=== PATIENT | female | born 1970 | race Caucasian/White ===

== ENCOUNTER 2021-07-06 10:56 | Inpatient (IN) | payer OTHER ==
[2021-07-06] VITALS (7 sets, daily range): BP systolic 103–139; BP diastolic 58–78
[~2021-07-06] VITALS: Ht 162.6 cm; Wt 95.3 kg
[2021-07-06] MEDS: Vancomycin IV 1.25 GM in SODIUM CHLORIDE 0.9% 250ML 250 ML IV SCH (01:30)
[2021-07-06 11:24] LABS: BASOPHILS # (AUTO) 0.1 (0.0-0.1); BASOPHILS % 0.7 % (0.0-1.0); EOSINOPHILS # (AUTO) 0.2 (0.0-0.4); EOSINOPHILS % 2.2 % (0.0-6.0); HEMATOCRIT 41.3 % (34.2-44.1); HEMOGLOBIN 12.5 g/dL (12.0-16.0); LYMPHOCYTES # (AUTO) 2.2 (1.0-3.2); LYMPHOCYTES % 23.5 % (18.0-39.1); MEAN CORPUSCULAR HEMOGLOBIN 28.9 pg (28-32); MEAN CORPUSCULAR HGB CONC 30.3 g/dL (31-35); MEAN CORPUSCULAR VOLUME 95.4 fL (81-99); MONOCYTES # (AUTO) 0.8 (0.2-0.8); MONOCYTES % 8.2 % (4.4-11.3); NEUTROPHILS % 64.1 % (38.7-80.0); PLATELET COUNT 471 x10e3/uL (140-360); RED BLOOD COUNT 4.33 x10e6/uL (3.6-5.1); RED CELL DISTRIBUTION WIDTH 17.1 % (11.7-14.4)
[2021-07-06 11:34] LABS: INR 0.9; PARTIAL THROMBOPLASTIN TIME 27.5 seconds (23.8-35.5)
[2021-07-06 11:42] LABS: ALBUMIN 3.4 g/dL (3.5-5.0); ALBUMIN/GLOBULIN RATIO 0.9 (0.8-2.0); ANION GAP 15.8 mmol/L (8-16); CALCIUM 10.4 mg/dL (8.4-10.2); CREATININE, SERUM 0.76 mg/dL (0.57-1.11); POTASSIUM 3.8 mmol/L (3.5-5.1)
[2021-07-06] MEDS ORDERED: PROPOFOL IV EMULSION 10 MG/ML 20 ML VIAL ONE (12:17)
[2021-07-06] MEDS ORDERED: SEVOFLURANE INHAL SOLN 250 ML PEN BTL ONE (12:17)
[2021-07-06] MEDS ORDERED: LIDOCAINE HCL 2% LOCAL INJ 5 ML SDV VIAL INJ ONE (12:17)
[2021-07-06] MEDS ORDERED: POVIDONE IODINE 0.05% 0.05 % ML PO ONE (12:17)
[2021-07-06] MEDS ORDERED: DEXAMETHASONE SOD PHOS INJ 4 MG/ML SDV ONE (12:17)
[2021-07-06] MEDS ORDERED: ONDANSETRON HCL INJ 2MG/ML 2ML 2 MG/ML VIAL ONE (12:17)
[2021-07-06] MEDS ORDERED: KETOROLAC TROMETHAMINE 30 MG/ML VIAL ONE (12:17)
[2021-07-06] MEDS ORDERED: ASPIRIN EC81 MG PO (12:59)
[2021-07-06] MEDS ORDERED: LEVOTHYROXINE25 MCG PO (12:59)
[2021-07-06] MEDS ORDERED: HYDROCODON-ACE1 EA11 PO (12:59)
[2021-07-06] MEDS ORDERED: CELECOXIB200 MG PO (12:59)
[2021-07-06] MEDS ORDERED: CLINDAMYCIN HC300 MG PO (12:59)
[2021-07-06] MEDS ORDERED: ATORVASTATIN CA40 MG PO (12:59)
[2021-07-06] MEDS ORDERED: DOXYCYCLINE HY100 MG PO (12:59)
[2021-07-06] MEDS ORDERED: METHOCARBAMOL500 MG PO (12:59)
[2021-07-06] MEDS ORDERED: LISINOPRIL-HCT1 EAC1 PO (12:59)
[2021-07-06] MEDS ORDERED: METFORMIN HCL1000 MG PO (12:59)
[2021-07-06] MEDS ORDERED: GABAPENTIN300 MG PO (12:59)
[2021-07-06] MEDS ORDERED: ATROVENT HFA12.9 GM INH (12:59)
[2021-07-06] MEDS ORDERED: ONDANSETRON HCL INJ 2MG/ML 2ML 2 MG/ML VIAL IV PRN (13:15)
[2021-07-06] MEDS ORDERED: LIDOCAINE 4% PATCH TP PRN (13:15)
[2021-07-06] MEDS ORDERED: ALBUTEROL/IPRATROPIUM 3 ML NEB NEB PRN (13:15)
[2021-07-06] MEDS ORDERED: POTASSIUM CHLORIDE 20 MEQ TAB CR PO PRN (13:15)
[2021-07-06] MEDS ORDERED: HYDRALAZINE HCL 20 MG/ML VIAL IV PRN (13:15)
[2021-07-06] MEDS ORDERED: SIMETHICONE 80 MG CHEW PO PRN (13:15)
[2021-07-06] MEDS ORDERED: BENZONATATE 100 MG CAP PO PRN (13:15)
[2021-07-06] MEDS ORDERED: DIPHENHYDRAMINE HCL 25 MG CAP PO PRN (13:15)
[2021-07-06] MEDS ORDERED: MELATONIN 5 MG TABLET PO PRN (13:15)
[2021-07-06] MEDS ORDERED: DEXTROSE 50% SYRINGE 50 ML IV PRN (13:15)
[2021-07-06] MEDS ORDERED: ACETAMINOPHEN 325 MG TAB PO PRN (13:15)
[2021-07-06] MEDS ORDERED: FENTANYL CITRATE/PF 100MCG/2 ML INJ ONE (13:26)
[2021-07-06] MEDS ORDERED: MIDAZOLAM HCL 2 MG/2 ML VIAL ONE (13:26)
[2021-07-06] MEDS: DEXTROSE 5%/0.9% SOD CHL 1,000 ML IV SCH ×2 (13:28→21:24)
[2021-07-06] MEDS: ENOXAPARIN SOD INJ 40 MG/0.4 ML SYR SC SCH (17:00)
[2021-07-06] MEDS ORDERED: ROPIVACAINE 0.5% 5 MG/ML 30 ML SDV ONE (17:38)
[2021-07-06] MEDS ORDERED: HYDROGEN PEROXIDE 120 ML BTL ONE (17:57)
[2021-07-06] MEDS ORDERED: Vancomycin IV 1 GM VIAL ONE ×3 (18:10→18:55)
[2021-07-06] MEDS ORDERED: SODIUM CHLORIDE 0.9% 500ML 0 ML ONE (18:14)
[2021-07-06] MEDS ORDERED: ACETAMINOPHEN 1000 MG/100 ML 100 ML IV ONE (18:41)
[2021-07-06] MEDS ORDERED: SODIUM CHLORIDE 0.9% 250ML 250 ML ONE (18:42)
[2021-07-06] MEDS ORDERED: HYDROMORPHONE 1MG/1ML INJ ONE ×2 (18:42→20:40)
[2021-07-06] MEDS ORDERED: HYDROCODONE/APAP 10MG-325MG TAB PO PRN (20:15)
[2021-07-06] MEDS ORDERED: Morphine 2mg Syringe 2 MG/ML SYR IV PRN (20:15)
[2021-07-06] MEDS ORDERED: Morphine 4mg Syringe 4 MG/ML INJ IV PRN (20:15)
[2021-07-07] MEDS: CEFEPIME 2 GM in SODIUM CHLORIDE 0.9% 100 ML IV SCH ×4 (01:25→22:40)
[2021-07-07 04:00] VITALS: BP 110/68
[2021-07-07 06:52] LABS: BASOPHILS % 0.3 % (0.0-1.0); EOSINOPHILS % 0.2 % (0.0-6.0); HEMOGLOBIN 9.6 g/dL (12.0-16.0); LYMPHOCYTES # (AUTO) 1.7 (1.0-3.2); LYMPHOCYTES % 17.2 % (18.0-39.1); MEAN CORPUSCULAR HEMOGLOBIN 28.8 pg (28-32); MEAN CORPUSCULAR VOLUME 96.1 fL (81-99); MONOCYTES # (AUTO) 0.7 (0.2-0.8); MONOCYTES % 7.1 % (4.4-11.3); NEUTROPHILS # (AUTO) 7.4 (2.1-6.9); NEUTROPHILS % 73.7 % (38.7-80.0); PLATELET COUNT 383 x10e3/uL (140-360); RED BLOOD COUNT 3.33 x10e6/uL (3.6-5.1)
[2021-07-07] MEDS ORDERED: Morphine 2mg Syringe 2 MG/ML SYR IV PRN (07:30)
[2021-07-07 07:34] LABS: ANION GAP 11.6 mmol/L (8-16); CALCIUM 7.7 mg/dL (8.4-10.2); CREATININE, SERUM 0.64 mg/dL (0.57-1.11); POTASSIUM 3.6 mmol/L (3.5-5.1)
[2021-07-07 08:15] VITALS: BP 109/72
[2021-07-07 08:16] VITALS: BP 109/72
[2021-07-07] MEDS: PANTOPRAZOLE SOD 40 MG TABEC PO SCH (09:03)
[2021-07-07] MEDS: Vancomycin IV 1.25 GM in SODIUM CHLORIDE 0.9% 250ML 250 ML IV SCH ×2 (09:03→22:40)
[2021-07-07] MEDS: DEXTROSE 5%/0.9% SOD CHL 1,000 ML IV SCH (09:15)
[2021-07-07 11:29] VITALS: BP 115/71
[2021-07-07] MEDS: HYDROCODONE/APAP 10MG-325MG TAB PO PRN ×2 (11:46→18:10)
[2021-07-07 16:00] VITALS: BP 137/85
[2021-07-07] MEDS: ENOXAPARIN SOD INJ 40 MG/0.4 ML SYR SC SCH (16:32)
[2021-07-07] MEDS: CELECOXIB 200 MG CAP PO SCH (16:32)
[2021-07-07] MEDS: ASPIRIN 81 MG ENTERIC COATED PO SCH (16:32)
[2021-07-07] MEDS ORDERED: CELECOXIB 200 MG PO SCH (17:00)
[2021-07-07 20:00] VITALS: BP 115/66
[2021-07-07] MEDS ORDERED: NON-FORMULARY MEDICATION (Atorvastatin Calcium 40 MG) PO SCH (21:00)
[2021-07-07] MEDS: ATORVASTATIN 40 MG TAB PO SCH (22:40)
[2021-07-08] VITALS: BP 122/76
[2021-07-08 04:00] VITALS: BP 122/82
[2021-07-08] MEDS: HYDROCODONE/APAP 10MG-325MG TAB PO PRN ×2 (04:18→10:49)
[2021-07-08] MEDS: CEFEPIME 2 GM in SODIUM CHLORIDE 0.9% 100 ML IV SCH (06:19)
[2021-07-08] MEDS: LEVOTHYROXINE SODIUM 25 MCG TABLET PO SCH (06:19)
[2021-07-08 08:00] VITALS: BP 127/84
[2021-07-08] MEDS: CELECOXIB 200 MG CAP PO SCH ×2 (08:31→16:37)
[2021-07-08] MEDS: GABAPENTIN 300 MG CAP PO SCH (08:31)
[2021-07-08] MEDS: ASPIRIN 81 MG ENTERIC COATED PO SCH ×2 (08:31→16:37)
[2021-07-08] MEDS: PANTOPRAZOLE SOD 40 MG TABEC PO SCH (08:31)
[2021-07-08] MEDS: DOCUSATE SODIUM 100 MG CAP PO PRN (08:31)
[2021-07-08 10:08] LABS: BASOPHILS # (AUTO) 0.1 (0.0-0.1); BASOPHILS % 0.7 % (0.0-1.0); EOSINOPHILS # (AUTO) 0.2 (0.0-0.4); EOSINOPHILS % 1.8 % (0.0-6.0); HEMATOCRIT 31.2 % (34.2-44.1); HEMOGLOBIN 9.5 g/dL (12.0-16.0); LYMPHOCYTES # (AUTO) 2.1 (1.0-3.2); LYMPHOCYTES % 21.4 % (18.0-39.1); MEAN CORPUSCULAR HEMOGLOBIN 29.4 pg (28-32); MEAN CORPUSCULAR HGB CONC 30.4 g/dL (31-35); MEAN CORPUSCULAR VOLUME 96.6 fL (81-99); MONOCYTES % 10.6 % (4.4-11.3); NEUTROPHILS # (AUTO) 5.9 (2.1-6.9); NEUTROPHILS % 60.9 % (38.7-80.0); PLATELET COUNT 373 x10e3/uL (140-360); RED BLOOD COUNT 3.23 x10e6/uL (3.6-5.1); RED CELL DISTRIBUTION WIDTH 17.2 % (11.7-14.4)
[2021-07-08 10:26] LABS: ANION GAP 11.7 mmol/L (8-16); CALCIUM 7.8 mg/dL (8.4-10.2); CREATININE, SERUM 0.65 mg/dL (0.57-1.11); POTASSIUM 3.7 mmol/L (3.5-5.1)
[2021-07-08] MEDS: Vancomycin IV 1.25 GM in SODIUM CHLORIDE 0.9% 250ML 250 ML IV SCH (11:44)
[2021-07-08 12:00] VITALS: BP 127/77
[2021-07-08] MEDS ORDERED: Vancomycin IV 1.5 GM in SODIUM CHLORIDE 0.9% 250ML 300 ML IV SCH (14:00)
[2021-07-08 16:00] VITALS: BP 107/65
[2021-07-08] MEDS: ENOXAPARIN SOD INJ 40 MG/0.4 ML SYR SC SCH (17:24)
[2021-07-08 20:00] VITALS: BP 116/71
[2021-07-08] MEDS: ATORVASTATIN 40 MG TAB PO SCH (21:00)
[2021-07-08] MEDS: Vancomycin IV 1.5 GM in SODIUM CHLORIDE 0.9% 250ML 300 ML IV SCH (21:11)
[2021-07-08] MEDS ORDERED: SODIUM CHLORIDE 0.9% 250ML 250 ML ONE (21:21)
[2021-07-09] VITALS (8 sets, daily range): BP systolic 115–127; BP diastolic 71–82
[2021-07-09] MEDS: HYDROCODONE/APAP 10MG-325MG TAB PO PRN ×3 (00:55→16:16)
[2021-07-09] MEDS: LEVOTHYROXINE SODIUM 25 MCG TABLET PO SCH (05:12)
[2021-07-09 05:47] LABS: BASOPHILS # (AUTO) 0.1 (0.0-0.1); EOSINOPHILS # (AUTO) 0.2 (0.0-0.4); EOSINOPHILS % 2.6 % (0.0-6.0); HEMOGLOBIN 9.6 g/dL (12.0-16.0); LYMPHOCYTES # (AUTO) 2.3 (1.0-3.2); LYMPHOCYTES % 23.9 % (18.0-39.1); MEAN CORPUSCULAR HEMOGLOBIN 29.2 pg (28-32); MEAN CORPUSCULAR VOLUME 97.3 fL (81-99); MONOCYTES # (AUTO) 0.9 (0.2-0.8); MONOCYTES % 9.4 % (4.4-11.3); NEUTROPHILS # (AUTO) 5.4 (2.1-6.9); NEUTROPHILS % 56.8 % (38.7-80.0); PLATELET COUNT 303 x10e3/uL (140-360); RED BLOOD COUNT 3.29 x10e6/uL (3.6-5.1); RED CELL DISTRIBUTION WIDTH 17.3 % (11.7-14.4)
[2021-07-09 06:25] LABS: ANION GAP 10.7 mmol/L (8-16); CALCIUM 7.8 mg/dL (8.4-10.2); CREATININE, SERUM 0.64 mg/dL (0.57-1.11); POTASSIUM 3.7 mmol/L (3.5-5.1)
[2021-07-09 08:39] LABS: EOSINOPHILS % (MANUAL) 2 % (0-7); LYMPHOCYTES % (MANUAL) 17 % (19-48); METAMYELOCYTES % (MANUAL) 1 % (0-0); MONOCYTES % (MANUAL) 4 % (3.4-9.0); MYELOCYTES % (MANUAL) 3 % (0-0); NEUTROPHILS % (MANUAL) 71 % (40-74); PLATELET ESTIMATE ADEQUATE; PROMYELOCYTES % (MANUAL) 1 % (0-0); RBC MORPHOLOGY COMMENT NORMAL
[2021-07-09 08:40] LABS: PLATELET MORPHOLOGY COMMENT FEW LARGE
[2021-07-09] MEDS: GABAPENTIN 300 MG CAP PO SCH (08:56)
[2021-07-09] MEDS: ASPIRIN 81 MG ENTERIC COATED PO SCH ×2 (08:56→16:00)
[2021-07-09] MEDS: Vancomycin IV 1.5 GM in SODIUM CHLORIDE 0.9% 250ML 300 ML IV SCH ×2 (08:56→22:00)
[2021-07-09] MEDS: CELECOXIB 200 MG CAP PO SCH ×2 (08:56→16:00)
[2021-07-09] MEDS: PANTOPRAZOLE SOD 40 MG TABEC PO SCH (08:56)
[2021-07-09] MEDS ORDERED: LACTULOSE SYRUP 20 GM/30 ML UDC PO NR (12:45)
[2021-07-09] MEDS: DOCUSATE SODIUM 100 MG CAP PO PRN (16:40)
[2021-07-09] MEDS: ENOXAPARIN SOD INJ 40 MG/0.4 ML SYR SC SCH (17:00)
[2021-07-09] MEDS: ATORVASTATIN 40 MG TAB PO SCH (22:00)
[2021-07-10] VITALS (7 sets, daily range): BP systolic 120–134; BP diastolic 70–86
[2021-07-10] MEDS: LEVOTHYROXINE SODIUM 25 MCG TABLET PO SCH (06:00)
[2021-07-10] MEDS: PANTOPRAZOLE SOD 40 MG TABEC PO SCH (09:08)
[2021-07-10] MEDS: ASPIRIN 81 MG ENTERIC COATED PO SCH ×2 (09:08→16:21)
[2021-07-10] MEDS: GABAPENTIN 300 MG CAP PO SCH (09:08)
[2021-07-10] MEDS: CELECOXIB 200 MG CAP PO SCH ×2 (09:08→16:21)
[2021-07-10] MEDS: Vancomycin IV 1.5 GM in SODIUM CHLORIDE 0.9% 250ML 300 ML IV SCH ×2 (10:26→22:42)
[2021-07-10] MEDS: ENOXAPARIN SOD INJ 40 MG/0.4 ML SYR SC SCH (16:21)
[2021-07-10] MEDS: HYDROCODONE/APAP 10MG-325MG TAB PO PRN (17:44)
[2021-07-10] MEDS: ATORVASTATIN 40 MG TAB PO SCH (22:42)
[2021-07-11 02:35] VITALS: BP 120/68
[2021-07-11] MEDS: HYDROCODONE/APAP 10MG-325MG TAB PO PRN ×2 (03:06→13:02)
[2021-07-11] MEDS: LEVOTHYROXINE SODIUM 25 MCG TABLET PO SCH (05:30)
[2021-07-11 05:49] VITALS: BP 116/69
[2021-07-11 05:55] LABS: BASOPHILS # (AUTO) 0.1 (0.0-0.1); BASOPHILS % 0.8 % (0.0-1.0); EOSINOPHILS # (AUTO) 0.3 (0.0-0.4); EOSINOPHILS % 2.7 % (0.0-6.0); HEMATOCRIT 30.9 % (34.2-44.1); HEMOGLOBIN 9.1 g/dL (12.0-16.0); LYMPHOCYTES # (AUTO) 2.2 (1.0-3.2); LYMPHOCYTES % 20.4 % (18.0-39.1); MEAN CORPUSCULAR HEMOGLOBIN 28.9 pg (28-32); MEAN CORPUSCULAR HGB CONC 29.4 g/dL (31-35); MEAN CORPUSCULAR VOLUME 98.1 fL (81-99); MONOCYTES # (AUTO) 0.7 (0.2-0.8); MONOCYTES % 6.9 % (4.4-11.3); NEUTROPHILS # (AUTO) 6.6 (2.1-6.9); NEUTROPHILS % 61.7 % (38.7-80.0); PLATELET COUNT 364 x10e3/uL (140-360); RED BLOOD COUNT 3.15 x10e6/uL (3.6-5.1); RED CELL DISTRIBUTION WIDTH 17.3 % (11.7-14.4)
[2021-07-11 06:21] LABS: ANION GAP 11.2 mmol/L (8-16); CALCIUM 8.2 mg/dL (8.4-10.2); CREATININE, SERUM 0.62 mg/dL (0.57-1.11); POTASSIUM 4.2 mmol/L (3.5-5.1)
[2021-07-11 07:55] VITALS: BP 116/69
[2021-07-11 08:07] VITALS: BP 140/81
[2021-07-11 11:35] VITALS: BP 137/84
[2021-07-11] MEDS: ASPIRIN 81 MG ENTERIC COATED PO SCH ×2 (12:13→17:37)
[2021-07-11] MEDS: GABAPENTIN 300 MG CAP PO SCH (12:13)
[2021-07-11] MEDS: Vancomycin IV 1.5 GM in SODIUM CHLORIDE 0.9% 250ML 300 ML IV SCH (12:13)
[2021-07-11] MEDS: PANTOPRAZOLE SOD 40 MG TABEC PO SCH (12:13)
[2021-07-11] MEDS: CELECOXIB 200 MG CAP PO SCH ×2 (12:13→17:37)
[2021-07-11] MEDS ORDERED: ONDANSETRON HCL 4 MG ORAL DISINTEGRATING TAB PO PRN (12:15)
[2021-07-11] MEDS ORDERED: RIVAROXABAN 10 MG TABLET PO SCH (13:45)
[2021-07-11] MEDS ORDERED: XARELTO10 MG PO (15:54)
[2021-07-11] MEDS ORDERED: CIPRO500 MG PO (15:56)
[2021-07-11] MEDS ORDERED: Tylenol #3 PO (15:56)
[2021-07-11 16:29] VITALS: BP 128/72
== END 2021-07-11 18:05 | disposition home or self-care (01) | DRG 486 ==
LOC: ER 11:05 → ERHOLD 11:06 → MED/SURG3 12:20
PROVIDERS: ADMIT Internal Medicine; ATTEND Internal Medicine
PROC: 0SUW09Z Supplement Left Knee Joint, Tibial Surface with Liner, Open Approach (ICD-10-PCS; 2021-07-06)
PROC: 0QDH0ZZ Extraction of Left Tibia, Open Approach (ICD-10-PCS; 2021-07-06)
PROC: 02HV33Z Insertion of Infusion Device into Superior Vena Cava, Percutaneous Approach (ICD-10-PCS; 2021-07-06)
PROC: 0SPD09Z Removal of Liner from Left Knee Joint, Open Approach (ICD-10-PCS; principal; 2021-07-06 17:56)
DX: T84.54XA Infection and inflammatory reaction due to internal left knee prosthesis, initial encounter (principal); L03.116 Cellulitis of left lower limb; I10 Essential (primary) hypertension; E11.9 Type 2 diabetes mellitus without complications; E03.9 Hypothyroidism, unspecified; B95.61 Methicillin susceptible Staphylococcus aureus infection as the cause of diseases classified elsewhere; B95.1 Streptococcus, group B, as the cause of diseases classified elsewhere; E78.5 Hyperlipidemia, unspecified; F17.210 Nicotine dependence, cigarettes, uncomplicated; E66.01 Morbid (severe) obesity due to excess calories; M65.162 Other infective (teno)synovitis, left knee; Z68.36 Body mass index [BMI] 36.0-36.9, adult; Z79.82 Long term (current) use of aspirin; Z79.84 Long term (current) use of oral hypoglycemic drugs; Z20.822 Contact with and (suspected) exposure to COVID-19; G89.4 Chronic pain syndrome; K59.00 Constipation, unspecified
CPT/HCPCS: 36415; 36569; 71045; 80048; 80053; 80202; 81025; 82948; 85025; 85610; 85651; 85730; 86141; 86850; 86900; 87040; 87071; 87075; 87102; 87186; 87205; 87206; 88304; 88305; 93005; 94660; 94799; 99284; J0692; J1100; J1170; J1650; J1885; J2001; J2250; J2270; J2405; J2795; J3010; J3370; J7040; J7042; J7050; U0002

== ENCOUNTER 2021-09-05 14:26 | Inpatient (IN) | payer OTHER ==
[~2021-09-05] VITALS: Ht 162.6 cm; Wt 95.3 kg
[~2021-09-05 14:26] MED LIST: ASPIRIN EC81 MG PO; ATORVASTATIN CA40 MG PO; ATROVENT HFA12.9 GM INH; CELECOXIB200 MG PO; CIPRO500 MG PO; CLINDAMYCIN HC300 MG PO; DOXYCYCLINE HY100 MG PO; GABAPENTIN300 MG PO; HYDROCODON-ACE1 EA11 PO; LEVOTHYROXINE25 MCG PO; LISINOPRIL-HCT1 EAC1 PO; METFORMIN HCL1000 MG PO; METHOCARBAMOL500 MG PO; Tylenol #3 PO; XARELTO10 MG PO
[2021-09-05] MEDS ORDERED: HEPARIN 25,000 UNIT 1,500 UNIT in DEXTROSE 5% 250ML 250 ML IV SCH (17:45)
[2021-09-05] MEDS ORDERED: HEPARIN SOD (PORCINE) 5,000 UNIT/ML VIAL IV ONE ×2 (18:15→19:30)
[2021-09-05] MEDS ORDERED: HEPARIN 25,000 UNIT 1,300 UNIT in DEXTROSE 5% 250ML 250 ML IV SCH (18:15)
[2021-09-05 18:19] LABS: BASOPHILS # (AUTO) 0.1 (0.0-0.1); BASOPHILS % 0.5 % (0.0-1.0); EOSINOPHILS # (AUTO) 0.2 (0.0-0.4); EOSINOPHILS % 1.8 % (0.0-6.0); HEMOGLOBIN 11.7 g/dL (12.0-16.0); LYMPHOCYTES # (AUTO) 2.3 (1.0-3.2); MEAN CORPUSCULAR HEMOGLOBIN 26.2 pg (28-32); MEAN CORPUSCULAR HGB CONC 29.3 g/dL (31-35); MEAN CORPUSCULAR VOLUME 89.5 fL (81-99); MONOCYTES # (AUTO) 0.8 (0.2-0.8); NEUTROPHILS # (AUTO) 9.2 (2.1-6.9); NEUTROPHILS % 73.1 % (38.7-80.0); PLATELET COUNT 417 x10e3/uL (140-360); RED BLOOD COUNT 4.47 x10e6/uL (3.6-5.1); RED CELL DISTRIBUTION WIDTH 15.6 % (11.7-14.4)
[2021-09-05 18:31] LABS: INR 0.87; PARTIAL THROMBOPLASTIN TIME 26.5 seconds (23.8-35.5); PROTHROMBIN TIME 12.6 seconds (11.9-14.5)
[2021-09-05 18:38] LABS: ANION GAP 17.1 mmol/L (8-16); CALCIUM 9.4 mg/dL (8.4-10.2); CREATININE, SERUM 0.72 mg/dL (0.57-1.11); POTASSIUM 4.1 mmol/L (3.5-5.1)
[2021-09-05] MEDS: HEPARIN 25,000 UNIT 1,200 UNIT in DEXTROSE 5% 250ML 250 ML IV SCH (19:41)
[2021-09-05] MEDS ORDERED: HEPARIN 25,000 UNIT DRIP IV ONE (19:49)
[2021-09-05 20:10] VITALS: BP 130/85
[2021-09-05 21:00] VITALS: BP 130/85
[2021-09-05 21:51] VITALS: BP 130/85
[2021-09-06] VITALS: BP 102/72
[2021-09-06] MEDS ORDERED: ONDANSETRON HCL INJ 2MG/ML 2ML 2 MG/ML VIAL IV PRN (01:15)
[2021-09-06] MEDS ORDERED: HYDRALAZINE HCL 20 MG/ML VIAL IV PRN (01:15)
[2021-09-06] MEDS ORDERED: DEXTROSE 50% SYRINGE 50 ML IV PRN ×2 (01:15)
[2021-09-06] MEDS ORDERED: LIDOCAINE 4% PATCH TP PRN (01:15)
[2021-09-06] MEDS ORDERED: ALBUTEROL/IPRATROPIUM 3 ML NEB NEB PRN (01:15)
[2021-09-06] MEDS ORDERED: ACETAMINOPHEN 325 MG TAB PO PRN (01:15)
[2021-09-06] MEDS ORDERED: DIPHENHYDRAMINE HCL 25 MG CAP PO PRN (01:15)
[2021-09-06] MEDS ORDERED: MELATONIN 5 MG TABLET PO PRN (01:15)
[2021-09-06] MEDS ORDERED: DOCUSATE SODIUM 100 MG CAP PO PRN (01:15)
[2021-09-06] MEDS ORDERED: BENZONATATE 100 MG CAP PO PRN (01:15)
[2021-09-06] MEDS ORDERED: SIMETHICONE 80 MG CHEW PO PRN (01:15)
[2021-09-06] MEDS ORDERED: HYDROCODONE/APAP 5MG-325MG TAB PO PRN (01:15)
[2021-09-06] MEDS ORDERED: POTASSIUM CHLORIDE 20 MEQ TAB CR PO PRN (01:15)
[2021-09-06 04:00] VITALS: BP 111/77
[2021-09-06 04:44] LABS: BASOPHILS # (AUTO) 0.1 (0.0-0.1); BASOPHILS % 0.6 % (0.0-1.0); EOSINOPHILS # (AUTO) 0.3 (0.0-0.4); EOSINOPHILS % 2.7 % (0.0-6.0); HEMATOCRIT 34.4 % (34.2-44.1); HEMOGLOBIN 10.3 g/dL (12.0-16.0); LYMPHOCYTES # (AUTO) 2.7 (1.0-3.2); LYMPHOCYTES % 22.8 % (18.0-39.1); MEAN CORPUSCULAR HEMOGLOBIN 26.8 pg (28-32); MEAN CORPUSCULAR HGB CONC 29.9 g/dL (31-35); MEAN CORPUSCULAR VOLUME 89.4 fL (81-99); MONOCYTES # (AUTO) 0.9 (0.2-0.8); MONOCYTES % 7.9 % (4.4-11.3); NEUTROPHILS # (AUTO) 7.6 (2.1-6.9); NEUTROPHILS % 65.1 % (38.7-80.0); PLATELET COUNT 387 x10e3/uL (140-360); RED BLOOD COUNT 3.85 x10e6/uL (3.6-5.1); RED CELL DISTRIBUTION WIDTH 15.8 % (11.7-14.4)
[2021-09-06] MEDS: LEVOTHYROXINE SODIUM 25 MCG TABLET PO SCH (05:43)
[2021-09-06] MEDS: INSULIN LISPRO 100 UNIT/1 ML 3ML VIAL SQ SCH ×4 (07:30→21:00)
[2021-09-06 08:00] VITALS: BP_SYST 119; BP_DIAS 73; BP_DIAS 84
[2021-09-06] MEDS: PANTOPRAZOLE SOD 40 MG TABEC PO SCH (08:19)
[2021-09-06] MEDS: ASPIRIN 81 MG ENTERIC COATED PO SCH ×2 (08:19→16:39)
[2021-09-06 09:19] VITALS: BP 119/84
[2021-09-06 13:36] VITALS: BP 122/85
[2021-09-06] MEDS ORDERED: CIPROFLOXACIN 500 MG TAB PO SCH (14:30)
[2021-09-06] MEDS: HEPARIN 25,000 UNIT 1,200 UNIT in DEXTROSE 5% 250ML 250 ML IV SCH (18:50)
[2021-09-06] MEDS ORDERED: HEPARIN 25,000 UNIT DRIP IV ONE (18:52)
[2021-09-06 20:00] VITALS: BP 131/77
[2021-09-06] MEDS: ATORVASTATIN 40 MG TAB PO SCH (21:00)
[2021-09-07] VITALS (10 sets, daily range): BP systolic 107–129; BP diastolic 68–88
[2021-09-07 05:32] LABS: BASOPHILS # (AUTO) 0.1 (0.0-0.1); BASOPHILS % 0.6 % (0.0-1.0); EOSINOPHILS # (AUTO) 0.4 (0.0-0.4); EOSINOPHILS % 3.7 % (0.0-6.0); HEMATOCRIT 33.6 % (34.2-44.1); LYMPHOCYTES # (AUTO) 2.6 (1.0-3.2); LYMPHOCYTES % 25.8 % (18.0-39.1); MEAN CORPUSCULAR HEMOGLOBIN 26.7 pg (28-32); MEAN CORPUSCULAR HGB CONC 29.8 g/dL (31-35); MEAN CORPUSCULAR VOLUME 89.6 fL (81-99); MONOCYTES # (AUTO) 0.9 (0.2-0.8); MONOCYTES % 8.5 % (4.4-11.3); NEUTROPHILS # (AUTO) 6.1 (2.1-6.9); NEUTROPHILS % 60.4 % (38.7-80.0); PLATELET COUNT 391 x10e3/uL (140-360); RED BLOOD COUNT 3.75 x10e6/uL (3.6-5.1); RED CELL DISTRIBUTION WIDTH 15.6 % (11.7-14.4)
[2021-09-07 06:00] LABS: ANION GAP 12.6 mmol/L (8-16); CALCIUM 8.5 mg/dL (8.4-10.2); CREATININE, SERUM 0.66 mg/dL (0.57-1.11); POTASSIUM 3.6 mmol/L (3.5-5.1)
[2021-09-07] MEDS: LEVOTHYROXINE SODIUM 25 MCG TABLET PO SCH (06:43)
[2021-09-07] MEDS: INSULIN LISPRO 100 UNIT/1 ML 3ML VIAL SQ SCH ×4 (07:30→20:35)
[2021-09-07] MEDS ORDERED: ONDANSETRON HCL 4 MG ORAL DISINTEGRATING TAB PO PRN (08:30)
[2021-09-07] MEDS: PANTOPRAZOLE SOD 40 MG TABEC PO SCH (08:32)
[2021-09-07] MEDS: ASPIRIN 81 MG ENTERIC COATED PO SCH ×2 (08:32→16:56)
[2021-09-07 15:13] LABS: RETICULOCYTE % 1.7 % (0.8-2.2)
[2021-09-07 15:50] LABS: FERRITIN 16.92 ng/mL (4.63-204.00)
[2021-09-07] MEDS: HEPARIN 25,000 UNIT 1,200 UNIT in DEXTROSE 5% 250ML 250 ML IV SCH (19:30)
[2021-09-07] MEDS: ATORVASTATIN 40 MG TAB PO SCH (20:34)
[2021-09-07] MEDS: APIXABAN 5 MG TABLET PO SCH (21:58)
[2021-09-08] VITALS: BP 129/78
[2021-09-08 04:00] VITALS: BP 130/84
[2021-09-08 05:03] LABS: BASOPHILS # (AUTO) 0.1 (0.0-0.1); BASOPHILS % 0.6 % (0.0-1.0); EOSINOPHILS # (AUTO) 0.3 (0.0-0.4); EOSINOPHILS % 3.3 % (0.0-6.0); HEMATOCRIT 32.8 % (34.2-44.1); HEMOGLOBIN 9.7 g/dL (12.0-16.0); LYMPHOCYTES # (AUTO) 2.2 (1.0-3.2); LYMPHOCYTES % 23.5 % (18.0-39.1); MEAN CORPUSCULAR HEMOGLOBIN 26.6 pg (28-32); MEAN CORPUSCULAR HGB CONC 29.6 g/dL (31-35); MEAN CORPUSCULAR VOLUME 90.1 fL (81-99); MONOCYTES # (AUTO) 0.8 (0.2-0.8); MONOCYTES % 8.2 % (4.4-11.3); NEUTROPHILS # (AUTO) 5.9 (2.1-6.9); NEUTROPHILS % 62.7 % (38.7-80.0); PLATELET COUNT 418 x10e3/uL (140-360); RED BLOOD COUNT 3.64 x10e6/uL (3.6-5.1); RED CELL DISTRIBUTION WIDTH 15.4 % (11.7-14.4)
[2021-09-08] MEDS: LEVOTHYROXINE SODIUM 25 MCG TABLET PO SCH (05:28)
[2021-09-08] MEDS: INSULIN LISPRO 100 UNIT/1 ML 3ML VIAL SQ SCH ×2 (07:30→11:30)
[2021-09-08] MEDS: PANTOPRAZOLE SOD 40 MG TABEC PO SCH (08:15)
[2021-09-08 09:14] VITALS: BP 134/90
[2021-09-08 09:34] VITALS: BP 134/90
[2021-09-08] MEDS: ASPIRIN 81 MG ENTERIC COATED PO SCH (10:00)
[2021-09-08] MEDS: APIXABAN 5 MG TABLET PO SCH (10:00)
[2021-09-08 12:53] VITALS: BP 141/85
[2021-09-08 17:00] VITALS: BP 128/78
== END 2021-09-08 18:25 | disposition home or self-care (01) | DRG 315 ==
LOC: ER 14:35 → INTOOBSV 17:30 → ERHOLD 17:30 → MED/SURG 19:58 → OBSVTOIN 09-07 14:21
PROVIDERS: ADMIT Internal Medicine; ATTEND Internal Medicine
DX: T82.868A Thrombosis due to vascular prosthetic devices, implants and grafts, initial encounter (principal); I82.622 Acute embolism and thrombosis of deep veins of left upper extremity; E03.9 Hypothyroidism, unspecified; I10 Essential (primary) hypertension; E11.9 Type 2 diabetes mellitus without complications; Z20.822 Contact with and (suspected) exposure to COVID-19; D64.9 Anemia, unspecified; Z79.82 Long term (current) use of aspirin; Z79.84 Long term (current) use of oral hypoglycemic drugs
CPT/HCPCS: 0223U; 36415; 80048; 82607; 82728; 82746; 82948; 83540; 84466; 85025; 85045; 85610; 85651; 85730; 93306; 93971; 96365; 96366; 99284; G0378; J1644